=== PATIENT | male | born 1985 | race Hispanic/Latino ===

== ENCOUNTER 2017-03-27 10:50 | Emergency (ER) | payer OTHER ==
[~2017-03-27] VITALS: Ht 167.6 cm; Wt 71.8 kg
[2017-03-27] MEDS ORDERED: NALT50TA4 PO (11:04)
[2017-03-27] MEDS ORDERED: LAMO100T (11:04)
[2017-03-27] MEDS ORDERED: CYCL10TA PO (11:04)
[2017-03-27] MEDS ORDERED: HYDR50TA70 PO (11:04)
[2017-03-27] MEDS ORDERED: GABA-283 PO (11:04)
[2017-03-27] MEDS ORDERED: DIAZ5TAB PO (11:04)
[2017-03-27] MEDS ORDERED: TRAZ1TAB14 PO (11:04)
[2017-03-27] MEDS ORDERED: FLUO20CA8 PO (11:04)
[2017-03-27] MEDS ORDERED: PRAZ5CAP PO (11:04)
[2017-03-27 12:37] LABS: MEAN CORPUSCULAR HEMOGLOBIN 30.1 pg (27.0-33.0); MEAN CORPUSCULAR HGB CONC 34.6 g/dl (32.0-36.5); MEAN CORPUSCULAR VOLUME 87.1 fl (80.0-96.0); RED CELL DISTRIBUTION WIDTH 13.7 % (11.5-14.5); WHITE BLOOD COUNT 5.8 K/mm3 (4.0-10.0)
[2017-03-27 13:26] LABS: ALBUMIN 4.2 GM/DL (3.2-5.2); ALBUMIN/GLOBULIN RATIO 1.27 (1.00-1.93); ALKALINE PHOSPHATASE 72 U/L (45-117); ALT/SGPT 32 U/L (12-78); ANION GAP 7 MEQ/L (8-16); AST/SGOT 23 U/L (15-37); BILIRUBIN,DIRECT 0.2 MG/DL (0.0-0.2); BILIRUBIN,TOTAL 1.2 MG/DL (0.2-1.0); BLOOD UREA NITROGEN 13 MG/DL (7-18); CALCIUM LEVEL 9.1 MG/DL (8.5-10.1); CARBON DIOXIDE LEVEL 28 MEQ/L (21-32); CHLORIDE LEVEL 106 MEQ/L (98-107); CREATININE FOR GFR 0.83 MG/DL (0.70-1.30); GLOMERULAR FILTRATION RATE > 60.0 (>60); GLUCOSE, FASTING 104 MG/DL (70-105); POTASSIUM SERUM 4.4 MEQ/L (3.5-5.1); SODIUM LEVEL 141 MEQ/L (136-145); TOTAL PROTEIN 7.5 GM/DL (6.4-8.2)
[2017-03-27 14:15] LABS: METHADONE URINE NEGATIVE (NEGATIVE)
--- NOTE | 2017-03-27 20:04 | ECGEPIP ---
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
[2017-03-27] MEDS ORDERED: GABAPENTIN 300 MG CAP PO ONE (21:15)
[2017-03-27] MEDS ORDERED: traZODone 100 MG TAB PO ONE (21:15)
[2017-03-27] MEDS ORDERED: hydrOXYzine 50 MG TAB PO ONE (21:15)
[2017-03-27] MEDS ORDERED: PRAZOSIN 1 MG CAP PO ONE (21:15)
[2017-03-27 23:57] VITALS: BP 138/77
== END 2017-03-28 ==
LOC: M ED 10:50
DX: R45.851 Suicidal ideations (principal); R45.850 Homicidal ideations; F43.10 Post-traumatic stress disorder, unspecified; F17.210 Nicotine dependence, cigarettes, uncomplicated; Z79.899 Other long term (current) drug therapy
CPT/HCPCS: 36415; 80048; 80076; 80307; 84443; 85027; 93005; 99285; G0480

== ENCOUNTER 2017-05-24 20:43 | Emergency (ER) | payer OTHER ==
[~2017-05-24] VITALS: Ht 167.6 cm; Wt 70.9 kg
[~2017-05-24 20:43] MED LIST: CYCL10TA PO; DIAZ5TAB PO; FLUO20CA8 PO; GABA-283 PO; HYDR50TA70 PO; LAMO100T; NALT50TA4 PO; PRAZ5CAP PO; TRAZ1TAB14 PO
[2017-05-24 22:34] VITALS: BP 143/78
--- NOTE | 2017-05-25 08:30 | REP ---
Clinical: Trauma. Technique: AP, lateral, bilateral oblique views of the right ankle. Findings: There is a closed oblique fracture involving the distal fibular metadiaphysis with overlying soft tissue swelling. No subcutaneous emphysema or radiodense foreign body. Ankle mortise appears grossly intact. No other fracture dislocation is identified. Impression: Oblique fracture of the distal fibular metadiaphysis with diffuse soft tissue swelling. Signed by Segundo Montiel MD 05/25/2017 08:22 A
== END 2017-05-24 22:38 | disposition home or self-care (01) ==
LOC: M ED 20:43
DX: Z60.9 Problem related to social environment, unspecified (principal); S82.401A Unspecified fracture of shaft of right fibula, initial encounter for closed fracture; X58.XXXA Exposure to other specified factors, initial encounter; Y92.89 Other specified places as the place of occurrence of the external cause; Y93.89 Activity, other specified; Y99.8 Other external cause status; F43.10 Post-traumatic stress disorder, unspecified; G40.909 Epilepsy, unspecified, not intractable, without status epilepticus; Z79.899 Other long term (current) drug therapy; F17.210 Nicotine dependence, cigarettes, uncomplicated

== ENCOUNTER 2019-08-10 03:32 | Emergency (ER) | payer OTHER ==
[~2019-08-10] VITALS: Ht 167.6 cm; Wt 72.4 kg
[~2019-08-10 03:32] MED LIST changes: +FLUO20CA20 PO; -FLUO20CA8 PO; -GABA-283 PO; +GABA-845 PO; -LAMO100T; +LAMO100T3
[2019-08-10] MEDS ORDERED: diphenhydrAMINE INJ 50MG/ML VIAL (J1200) IM ONE (03:45)
[2019-08-10] MEDS ORDERED: LORazepam 2 MG/ML VIAL (J2060) IM ONE (03:45)
[2019-08-10] MEDS ORDERED: HALOPERIDOL 5 MG/ML VIAL (J1630) IM ONE (04:00)
[2019-08-10] MEDS ORDERED: NS 1,000 ML IV ONE (04:45)
[2019-08-10 05:09] LABS: HEMATOCRIT 45.5 % (42.0-52.0); HEMOGLOBIN 15.7 g/dl (13.5-17.5); MEAN CORPUSCULAR HEMOGLOBIN 29.2 pg (27.0-33.0); MEAN CORPUSCULAR HGB CONC 34.5 g/dl (32.0-36.5); MEAN CORPUSCULAR VOLUME 84.7 fl (80.0-96.0); PLATELET COUNT, AUTOMATED 200 10^3/uL (150-450); RED BLOOD COUNT 5.37 10^6/uL (4.30-6.10); WHITE BLOOD COUNT 4.4 10^3/uL (4.0-10.0)
[2019-08-10] MEDS ORDERED: MIDAZOLAM INJ 2 MG/2 ML VIAL (J2250) IV ONE (05:30)
[2019-08-10] MEDS ORDERED: MIDAZOLAM INJ 2 MG/2 ML VIAL (J2250) IV STA (05:39)
[2019-08-10 06:06] LABS: BLOOD UREA NITROGEN 11 MG/DL (7-18); CALCIUM LEVEL 8.1 MG/DL (8.5-10.1); CARBON DIOXIDE LEVEL 26 MEQ/L (21-32); CHLORIDE LEVEL 110 MEQ/L (98-107); CREATININE FOR GFR 0.98 MG/DL (0.70-1.30); ETHYL ALCOHOL (ETHANOL) 0.292 % (0.000-0.010); GLOMERULAR FILTRATION RATE > 60.0 (>60); GLUCOSE, FASTING 101 MG/DL (70-100); MAGNESIUM LEVEL 2.4 MG/DL (1.8-2.4); POTASSIUM SERUM 3.7 MEQ/L (3.5-5.1); SODIUM LEVEL 144 MEQ/L (136-145)
[2019-08-10 11:30] VITALS: BP 99/56
== END 2019-08-10 14:26 | disposition home or self-care (01) ==
LOC: M ED 03:32
DX: F10.129 Alcohol abuse with intoxication, unspecified (principal); Z79.899 Other long term (current) drug therapy
CPT/HCPCS: 51702; 80048; 83735; 85027; 96372; 96374; 99285; G0480; J1200; J1630; J2060; J2250

== ENCOUNTER 2020-06-13 19:43 | Emergency (ER) | payer OTHER ==
[~2020-06-13] VITALS: Ht 165.1 cm; Wt 68.2 kg
[~2020-06-13 19:43] MED LIST changes: +CYCL-707 PO; -CYCL10TA PO
[2020-06-13] MEDS ORDERED: LATU80TA PO (20:26)
[2020-06-13 20:48] LABS: HEMATOCRIT 47.3 % (42.0-52.0); HEMOGLOBIN 15.2 g/dl (13.5-17.5); MEAN CORPUSCULAR HEMOGLOBIN 28.3 pg (27.0-33.0); MEAN CORPUSCULAR HGB CONC 32.1 g/dl (32.0-36.5); MEAN CORPUSCULAR VOLUME 87.9 fl (80.0-96.0); PLATELET COUNT, AUTOMATED 241 10^3/uL (150-450); RED BLOOD COUNT 5.38 10^6/uL (4.30-6.10); WHITE BLOOD COUNT 5.9 10^3/uL (4.0-10.0)
[2020-06-13 21:05] LABS: AMPHETAMINES LEVEL URINE NEGATIVE (NEGATIVE); BARBITURATES URINE NEGATIVE (NEGATIVE); BENZODIAZEPINES URINE NEGATIVE (NEGATIVE); CANNABINOIDS URINE NEGATIVE (NEGATIVE); COCAINE METABOLITE URINE NEGATIVE (NEGATIVE); METHADONE URINE NEGATIVE (NEGATIVE); OPIATES URINE NEGATIVE (NEGATIVE); PHENCYCLIDINE URINE NEGATIVE (NEGATIVE)
[2020-06-13 21:33] LABS: ACETAMINOPHEN LEVEL < 2.0 UG/ML (10.0-30.0); ALBUMIN 4.3 GM/DL (3.2-5.2); ALT/SGPT 27 U/L (12-78); BILIRUBIN,DIRECT 0.2 MG/DL (0.0-0.2); BILIRUBIN,TOTAL 0.6 MG/DL (0.2-1.0); BLOOD UREA NITROGEN 18 MG/DL (7-18); CARBON DIOXIDE LEVEL 30 MEQ/L (21-32); CHLORIDE LEVEL 105 MEQ/L (98-107); CREATININE FOR GFR 0.96 MG/DL (0.70-1.30); ETHYL ALCOHOL (ETHANOL) < 0.003 % (0.000-0.010); GLOMERULAR FILTRATION RATE > 60.0 (>60); GLUCOSE, FASTING 108 MG/DL (70-100); POTASSIUM SERUM 4.4 MEQ/L (3.5-5.1); SALICYLATE LEVEL < 1.7 MG/DL (5.0-30.0); SODIUM LEVEL 139 MEQ/L (136-145); TOTAL PROTEIN 7.7 GM/DL (6.4-8.2)
[2020-06-13 23:05] VITALS: BP 121/78
== END 2020-06-13 23:06 | disposition home or self-care (01) ==
LOC: M ED 19:43
DX: F43.0 Acute stress reaction (principal); F43.12 Post-traumatic stress disorder, chronic; F32.9 Major depressive disorder, single episode, unspecified; F41.9 Anxiety disorder, unspecified; Z79.899 Other long term (current) drug therapy
CPT/HCPCS: 80048; 80076; 80307; 84443; 85027; 99284; G0480

== ENCOUNTER 2020-07-29 14:24 | Emergency (ER) | payer OTHER ==
[~2020-07-29] VITALS: Ht 165.1 cm; Wt 63.6 kg
[~2020-07-29 14:24] MED LIST changes: +LATU80TA PO
--- OUTSIDE RECORDS SUMMARY | 2020-07-29 14:31 | CCD ---
Author Author [facility] Organization [facility] Address Unknown Phone Unavailable Support Name Relationship Address Phone SOM BURCH Next Of Kin [address] [place] [address] DISABLED Next Of Kin Unknown Unavailable RAUL ZUÑ[place] [address] QUINCY GANNONINA Next Of Kin [address] [facility] [address] [address] Next Of Kin [address] [place] [address] UE Next Of Kin Unknown Unavailable SCHMITZ, EDGAR Next Of Kin [address] [place] [address] [employer] Next Of Kin [address] [place] [address] Re-disclosure Warning The records that you are about to access may contain information from federally-assisted alcohol or drug abuse programs. If such information is present, then the following federally mandated warning applies: This information has been disclosed to you from records protected by federal confidentiality rules (42 CFR part 2). The federal rules prohibit you from making any further disclosure of this information unless further disclosure is expressly permitted by the written consent of the person to whom it pertains or as otherwise permitted by 42 CFR part 2. A general authorization for the release of medical or other information is NOT sufficient for this purpose. The Federal rules restrict any use of the information to criminally investigate or prosecute any alcohol or drug abuse patient.The records that you are about to access may contain highly sensitive health information, the redisclosure of which is protected by Article 27-F of the [facility] Public Health law. If you continue you may have access to information: Regarding HIV / AIDS; Provided by facilities licensed or operated by the [facility] Office of Mental Health; or Provided by the [facility] Office for People With Developmental Disabilities. If such information is present, then the following [facility] mandated warning applies: This information has been disclosed to you from confidential records which are protected by state law. State law prohibits you from making any further disclosure of this information without the specific written consent of the person to whom it pertains, or as otherwise permitted by law. Any unauthorized further disclosure in violation of state law may result in a fine or mcfp sentence or both. A general authorization for the release of medical or other information is NOT sufficient authorization for further disc losure. Insurance Providers Payer name Policy type / Coverage type Policy ID Covered republican ID Covered republican's relationship to phillips Policy Phillips Plan Information 'S ADMINISTRATION [id number] SP [id number] [facility] O [id number] S [id number] [facility]/136E O [id number] S [id number] [employer] [facility]/[place] [id number] S [id number] SELF PAY SP UNAVAILABLE S UNAVAILA BLE V[employer] PROGRAM VACAA [facility]/[place] [id number] S [id number] [employer] [facility]/[place] [id number] S [id number] PROGRAM [facility]/[place] [id number] S [id number] 'S ADMINISTRATION [id number] SP [id number] ACTIVE DUTY [id number] SP [id number] Results ID Date Data Source [id number] 06/25/2020 12:00:00 AM EST [facility] Kenny Tong MD Patient Name: EDITA SCHMITZ [place] Date of : 1985[address] [address] Date of Exam: 06/25/2020PH#: Fax: [phone] EXAM: SHOULDER (COMPLETE-MINIMUM 2 VIEWS) LEFT X-RAYCLINICAL INFORMATION: Disability determination.Three views.There is no evidence of acute fracture, dislocation or intrinsic bonedisease. The joint spaces appear normal.IMPRESSION:Negative left shoulder series.LONG Flores/Aurelia camejo for referring TUNDE SCHMITZ to our office. Electronically Signed - KIKI ZUNIGA MD 06/25/20 16:56 Name Value Range Interpretation Code Description Data Becky rce(s) Supporting Document(s) ID Date Data Source [id number] 06/25/2020 12:00:00 AM EST [facility] Kenny Tong MD Patient Name: EDITA SCHMITZ [facility] Date of : 1985[place] [address] Date of Exam: 06/25/2020#: Fax: [phone] EXAM: ANKLE COMPLETE RIGHT (MIN 3 VIEWS) X-RAYCLINICAL INFORMATION: Disability determination.Four views.There is no acute fracture or dislocation. Metallic plate and multiplescrews are seen in the distal fibula. The ankle mortise is anatomic. Isee no other significant finding.IMPRESSION:Metallic internal fixation distal fibula. Otherwise, negative exam.LONG Flores/Aurelia camejo for referring TUNDE SCHMITZ to our office. Electronically Signed - KIKI ZUNIGA MD 06/25/20 16:56 Name Value Range Interpretation Code Description Data Becky rce(s) Supporting Document(s) Procedure
--- OUTSIDE RECORDS SUMMARY | 2020-07-29 16:27 | CCD ---
Author Author [facility] Organization [facility] Address Unknown Phone Unavailable Support Name Relationship Address Phone SOM BURCH Next Of Kin [address] [place] [address] DISABLED Next Of Kin Unknown Unavailable RAUL ZUÑ[place] [address] QUINCY GANNONINA Next Of Kin [address] [facility] [address] [address] Next Of Kin [address] [place] [address] UE Next Of Kin Unknown Unavailable SCHMITZ, EDGAR Next Of Kin [address] [place] [address] [employer] Next Of Kin [address] [place] [address] Re-disclosure Warning The records that you are [...] is protected by Article 27-F of the [facility] Public Health law. If you continue you may have access to information: Regarding HIV / AIDS; Provided by facilities licensed or operated by the [facility] Office of Mental Health; or Provided by the [facility] Office for People With Developmental Disabilities. If such information is present, then the following [facility] mandated warning applies: This information has [...] law may result in a fine or halfway sentence or both. A general authorization for the release of medical or other information is NOT sufficient authorization for further disc losure. Insurance Providers Payer name Policy type / Coverage type Policy ID Covered constitution party ID Covered constitution party's relationship to phillips Policy Phillips Plan Information 'S ADMINISTRATION [id number] SP [id number] [facility] O [id number] S [id number] [facility]/136E O [id number] S [id number] [facility] [employer] [facility]/[place] [id number] S [id number] SELF PAY SP UNAVAILABLE S UNAVAILA BLE V[employer] CHO[employer] PROGRAM VACAA [facility]/[place] [id number] S [id number] [facility]/[place] [id number] S [id number] PROGRAM [facility]/[place] [id number] S [id number] 'S ADMINISTRATION [id number] SP [id number] ACTIVE DUTY [id number] SP [id number] Results ID Date Data Source [id number] 06/25/2020 12:00:00 AM EST [facility] Kenny Tong MD Patient Name: EDITA SCHMITZ [place] Date of : 1985[address] [address] Date of Exam: 06/25/2020PH#: Fax: [phone] EXAM: SHOULDER (COMPLETE-MINIMUM 2 VIEWS) LEFT X-RAYCLINICAL INFORMATION: Disability determination.Three views.There is no evidence of acute fracture, dislocation or intrinsic bonedisease. The joint spaces appear normal.IMPRESSION:Negative left shoulder series.LONG Flores/Aurelia camejo for referring UTNDE SCHMITZ to our office. Electronically Signed - KIKI ZUNIGA MD 06/25/20 16:56 Name Value Range Interpretation Code Description Data Becky rce(s) Supporting Document(s) ID Date Data Source [id number] 06/25/2020 12:00:00 AM EST [facility] Kenny Tong MD Patient Name: EDITA SCHMITZ [facility] Date of : 1985[place] [address] Date of Exam: 06/25/2020#: Fax: [phone] EXAM: [...]
[2020-07-29 16:57] LABS: HEMATOCRIT 46.8 % (42.0-52.0); HEMOGLOBIN 15.6 g/dl (13.5-17.5); MEAN CORPUSCULAR HGB CONC 33.3 g/dl (32.0-36.5); PLATELET COUNT, AUTOMATED 193 10^3/uL (150-450); RED BLOOD COUNT 5.38 10^6/uL (4.30-6.10); WHITE BLOOD COUNT 3.8 10^3/uL (4.0-10.0)
[2020-07-29 17:19] LABS: AMPHETAMINES LEVEL URINE NEGATIVE (NEGATIVE); BARBITURATES URINE NEGATIVE (NEGATIVE); BENZODIAZEPINES URINE NEGATIVE (NEGATIVE); CANNABINOIDS URINE NEGATIVE (NEGATIVE); COCAINE METABOLITE URINE NEGATIVE (NEGATIVE); METHADONE URINE NEGATIVE (NEGATIVE); OPIATES URINE NEGATIVE (NEGATIVE); PHENCYCLIDINE URINE NEGATIVE (NEGATIVE)
[2020-07-29 17:31] LABS: ACETAMINOPHEN LEVEL < 2.0 UG/ML (10.0-30.0); ALBUMIN 4.1 GM/DL (3.2-5.2); ALT/SGPT 32 U/L (12-78); BILIRUBIN,DIRECT 0.2 MG/DL (0.0-0.2); BLOOD UREA NITROGEN 15 MG/DL (7-18); CARBON DIOXIDE LEVEL 30 MEQ/L (21-32); CHLORIDE LEVEL 105 MEQ/L (98-107); CREATININE FOR GFR 0.96 MG/DL (0.70-1.30); ETHYL ALCOHOL (ETHANOL) < 0.003 % (0.000-0.010); GLOMERULAR FILTRATION RATE > 60.0 (>60); GLUCOSE, FASTING 83 MG/DL (70-100); POTASSIUM SERUM 4.4 MEQ/L (3.5-5.1); SALICYLATE LEVEL < 1.7 MG/DL (5.0-30.0); SODIUM LEVEL 139 MEQ/L (136-145); TOTAL PROTEIN 7.1 GM/DL (6.4-8.2)
[2020-07-29 19:26] VITALS: BP 136/72
== END 2020-07-29 19:31 | disposition home or self-care (01) ==
LOC: M ED 14:24
DX: Z04.6 Encounter for general psychiatric examination, requested by authority (principal); F33.9 Major depressive disorder, recurrent, unspecified; F41.9 Anxiety disorder, unspecified; F43.10 Post-traumatic stress disorder, unspecified; R56.9 Unspecified convulsions; Z79.899 Other long term (current) drug therapy; F17.210 Nicotine dependence, cigarettes, uncomplicated
CPT/HCPCS: 36415; 80048; 80076; 80307; 84443; 85027; 99284; G0480

== ENCOUNTER 2021-06-18 01:29 | Emergency (ER) | payer OTHER, SELFPAY ==
[~2021-06-18] VITALS: Ht 175.3 cm; Wt 100.0 kg
[~2021-06-18 01:29] MED LIST changes: +GABA-283 PO; -GABA-845 PO
--- OUTSIDE RECORDS SUMMARY | 2021-06-18 01:33 | CCD ---
Author Author [facility] Organization [facility] Address Unknown Phone Unavailable Support Name Relationship Address Phone SOM BURCH Next Of Kin [address] [place] [address] DISABLED Next Of Kin Unknown Unavailable RAUL ZUÑ[place] [address] ENRIQUETALAURE FISHMAN Next Of Kin [address] [facility] [address] [address] Next Of Kin [address] [place] [address] UE Next Of Kin Unknown Unavailable AINSLEY EDGAR Next Of Kin [address] [place] [address] [facility] Next Of Kin [address] [place] [address] Re-disclosure Warning The records that you are [...] is protected by Article 27-F of the [facility] Public Health law. If you continue you may have access to information: Regarding HIV / AIDS; Provided by facilities licensed or operated by the [facility] Office of Mental Health; or Provided by the [facility] Office for People With Developmental Disabilities. If such information is present, then the following [facility] mandated warning applies: This information has been [...] law may result in a fine or custodial sentence or both. A general authorization for the release of medical or other information is NOT sufficient authorization for further disc losure. Medications No Information Insurance Providers Payer name Policy type / Coverage type Policy ID Covered green party ID Covered green party's relationship to phillips Policy Phillips Plan Information 'S ADMINISTRATION [id number] SP [id number] [facility] O [id number] S [id number] [facility]/136E O [id number] S [id number] [employer] [facility]/[place] [id number] S [id number] SELF PAY SP UNAVAILABLE S UNAVAILA BLE V[employer] CHO[employer] PROGRAM VACAA [facility]/[place] [id number] S [id number] [employer] [facility]/[place] [id number] S [id number] PROGRAM [facility]/[place] [id number] S [id number] 'S ADMINISTRATION [id number] SP [id number] SELF PAY ONLY [id number] SP [id number] ACTIVE DUTY [id number] SP [id number] Problems, Conditions, and Diagnoses No Information Surgeries/Procedures No Information Results ID Date Data Source [id number] 04/22/2021 10:07:00 AM EDT [facility] Name Value Range Interpretation Code Description Data Becky rce(s) Supporting Document(s) SARS-COV 2 PCR NEGATIVE [facility] This lab was ordered by [employer] #30 and reported by [employer]. ID Date Data Source [id number] 04/22/2021 12:00:00 AM EDT [facility] Name Value Range Interpretation Code Description Data Becky rce(s) Supporting Document(s) SARS-CoV-2 (COVID-19) RNA [Presence] in Respiratory specimen by MANJIT with probe detection Not detected [facility] This lab was ordered by [employer] and r eported by [employer]. ID Date Data Source [id number] 06/25/2020 12:00:00 AM EST [facility] Kenny Tong MD Patient Name: EDITA SCHMITZ [facility] Date of : 1985[place] [address] Date of Exam: 06/25/2020#: Fax: [phone] EXAM: SHOULDER (COMPLETE-MINIMUM 2 VIEWS) LEFT X-RAYCLINICAL INFORMATION: Disability determination.Three views.There is no evidence of acute fracture, dislocation or intrinsic bonedisease. The joint spaces appear normal.IMPRESSION:Negative left shoulder series.Jonatan Bowers, LONG/Aurelia you for referring TUNDE SCHMITZ to our office. Electronically Signed - JONATAN BOWERS MD 06/25/20 16:56 Name Value Range Interpretation Code Description Data Becky rce(s) Supporting Document(s) ID Date Data Source [id number] 06/25/2020 12:00:00 AM EST [facility] Kenny Tong MD Patient Name: EDITA SCHMITZ [place] Date of : 1985[place] [address] Date of Exam: 06/25/2020#: Fax: [phone] EXAM: ANKLE COMPLETE RIGHT (MIN 3 VIEWS) X-RAYCLINICAL INFORMATION: Disability determination.Four views.There is no acute fracture or dislocation. Metallic plate and multiplescrews are seen in the distal fibula. The ankle mortise is anatomic. Isee no other significant finding.IMPRESSION:Metallic internal fixation distal fibula. Otherwise, negative exam.Jonatan Bowers, LONG/Aurelia you for referring TUNDE SCHMITZ to our office. Electronically Signed - JONATAN BOWERS MD 06/25/20 16:56 Name Value Range Interpretation Code Description Data Becky rce(s) Supporting Document(s) Procedure Social History No Information
[2021-06-18] MEDS ORDERED: NS 1,000 ML IV ONE ×2 (02:20→07:40)
[2021-06-18 02:38] LABS: ABG BASE EXCESS -5.7 (-2.0-2.0); ABG HCO3 20.4 MEQ/L (22.0-26.0); ABG O2 SATURATION 95.9 % (95.0-99.0); ABG PARTIAL PRESSURE CO2 42.1 mmHg (35.0-45.0); ABG PARTIAL PRESSURE O2 91.6 mmHg (75.0-100.0); ABG STANDARD HCO3 19.9 MEQ/L (22.0-26.0); ABG TOTAL CO2 21.7 MEQ/L (22.0-29.0); ABG pH (ARTERIAL) 7.304 UNITS (7.350-7.450)
[2021-06-18 02:42] LABS: HEMATOCRIT 47.4 % (42.0-52.0); HEMOGLOBIN 15.7 g/dl (13.5-17.5); MEAN CORPUSCULAR HEMOGLOBIN 28.8 pg (27.0-33.0); MEAN CORPUSCULAR HGB CONC 33.1 g/dl (32.0-36.5); MEAN CORPUSCULAR VOLUME 86.8 fl (80.0-96.0); PLATELET COUNT, AUTOMATED 287 10^3/uL (150-450); RED BLOOD COUNT 5.46 10^6/uL (4.30-6.10); WHITE BLOOD COUNT 6.7 10^3/uL (4.0-10.0)
[2021-06-18 03:06] LABS: AMPHETAMINES LEVEL URINE NEGATIVE (NEGATIVE); BARBITURATES URINE NEGATIVE (NEGATIVE); BENZODIAZEPINES URINE NEGATIVE (NEGATIVE); CANNABINOIDS URINE NEGATIVE (NEGATIVE); COCAINE METABOLITE URINE NEGATIVE (NEGATIVE); METHADONE URINE NEGATIVE (NEGATIVE); OPIATES URINE NEGATIVE (NEGATIVE); PHENCYCLIDINE URINE NEGATIVE (NEGATIVE)
[2021-06-18 03:21] LABS: RSV AMPLIFICATION NEGATIVE (NEGATIVE)
[2021-06-18 03:46] LABS: ACETAMINOPHEN LEVEL < 2.0 UG/ML (10.0-30.0); ALBUMIN 4.1 GM/DL (3.2-5.2); ALT/SGPT 28 U/L (12-78); BILIRUBIN,DIRECT 0.1 MG/DL (0.0-0.2); BILIRUBIN,TOTAL 0.6 MG/DL (0.2-1.0); BLOOD UREA NITROGEN 15 MG/DL (7-18); CALCIUM LEVEL 8.4 MG/DL (8.5-10.1); CARBON DIOXIDE LEVEL 22 MEQ/L (21-32); CHLORIDE LEVEL 110 MEQ/L (98-107); CREATININE FOR GFR 0.98 MG/DL (0.70-1.30); ETHYL ALCOHOL (ETHANOL) 0.319 % (0.000-0.010); GLOMERULAR FILTRATION RATE > 60.0 (>60); GLUCOSE, FASTING 120 MG/DL (70-100); POTASSIUM SERUM 3.9 MEQ/L (3.5-5.1); SALICYLATE LEVEL < 1.7 MG/DL (5.0-30.0); SODIUM LEVEL 144 MEQ/L (136-145); TOTAL PROTEIN 7.6 GM/DL (6.4-8.2)
--- NOTE | 2021-06-18 04:40 | REPVR ---
PROCEDURE INFORMATION: Exam: CT Head Without Contrast Exam date and time: 06/18/2021 2:10 AM Age: 36 years old Clinical indication: Altered mental status/memory loss; Confusion or disorientation; Patient HX: ETOH; Additional info: AMS TECHNIQUE: Imaging protocol: Computed tomography of the head without contrast. Radiation optimization: All CT scans at this facility use at least one of these dose optimization techniques: automated exposure control; mA and/or kV adjustment per patient size (includes targeted exams where dose is matched to clinical indication); or iterative reconstruction. COMPARISON: CR Nasal Bones 06/21/2015 2:28 AM FINDINGS: Brain: Normal. No hemorrhage. Unremarkable white matter. No mass effect. Cerebral ventricles: No ventriculomegaly. Paranasal sinuses: Mild bilateral maxillary sinus mucosal thickening. Mastoid air cells: Visualized mastoid air cells are well aerated. Auditory system: Debris in the external auditory canals bilaterally. Bones/joints: Unremarkable. No acute fracture. Soft tissues: Unremarkable. IMPRESSION: 1. Bilateral maxillary sinus disease. 2. Otherwise negative noncontrast head CT. Electronically signed by: Steve Roy On 06/18/2021 04:39:51 AM
--- NOTE | 2021-06-18 04:43 | REPVR ---
PROCEDURE INFORMATION: Exam: CT Cervical Spine Without Contrast Exam date and time: 06/18/2021 2:10 AM Age: 36 years old Clinical indication: Neck pain; Additional info: AMS TECHNIQUE: Imaging protocol: Computed tomography images of the cervical spine without contrast. Radiation optimization: All CT scans at this facility use at least one of these dose optimization techniques: automated exposure control; mA and/or kV adjustment per patient size (includes targeted exams where dose is matched to clinical indication); or iterative reconstruction. COMPARISON: No relevant prior studies available. FINDINGS: Bones/joints: No acute fracture or subluxation. Discs/Spinal canal/Neural foramina: Mild interspace narrowing at C5-C7 with very minimal posterior paracentral osteophytes and no spinal or foraminal stenosis. Sinuses: Right maxillary sinus mucosal thickening. Lungs: Lung apices are normal. Soft tissues: Unremarkable. IMPRESSION: 1. Early degenerative disc changes from C5-C7 with no spinal or foraminal stenosis. 2. Otherwise negative CT cervical spine. No acute fracture or subluxation. Electronically signed by: Steve Roy On 06/18/2021 04:43:17 AM
[2021-06-18] MEDS ORDERED: LORazepam 2 MG TAB PO PRN (05:20)
--- OUTSIDE RECORDS SUMMARY | 2021-06-18 05:28 | CCD ---
Author Author [facility] Organization [facility] Address Unknown Phone Unavailable Support Name Relationship Address Phone SOM BURCH Next Of Kin [address] [place] [address] DISABLED Next Of Kin Unknown Unavailable RAUL ZUÑ[place] [address] ENRIQUETALAURE FISHMAN Next Of Kin [address] [facility] [address] [address] Next Of Kin [address] [place] [address] UE Next Of Kin Unknown Unavailable AINSLEY EDGAR Next Of Kin [address] [place] [address] [facility] Next Of Kin [address] [place] [address] Re-disclosure Warning The records that you are [...] of the [facility] Public Health law. If you continue you may have access to information: Regarding HIV / AIDS; Provided by facilities licensed or operated by the [facility] Office of Mental Health; or Provided by the [facility] Office for People With Developmental Disabilities. If such information is present, then the following [facility] mandated warning applies: This information has been [...] law may result in a fine or residential sentence or both. A general authorization for the release of medical or other information is NOT sufficient authorization for further disc losure. Medications No Information Insurance Providers Payer name Policy type / Coverage type Policy ID Covered constitution party ID Covered constitution party's relationship to phillips Policy Phillips Plan Information 'S ADMINISTRATION [id number] SP [id number] [facility] O [id number] S [id number] [facility]/136E O [id number] S [id number] [employer] [facility]/[place] [id number] S [id number] SELF PAY SP UNAVAILABLE S UNAVAILA BLE [employer] PROGRAM VACAA [facility]/[place] [id number] S [id number] [employer] [facility]/[place] [id number] S [id number] PROGRAM [facility]/[place] [id number] S [id number] 'S ADMINISTRATION [id number] SP [id number] SELF PAY ONLY [id number] SP [id number] ACTIVE DUTY [id number] SP [id number] Problems, Conditions, and Diagnoses No Information Surgeries/Procedures No Information Results ID Date Data Source [id number] 04/22/2021 10:07:00 AM EDT [facility] Name Value Range Interpretation Code Description Data Becky rce(s) Supporting Document(s) SARS-COV 2 PCR NEGATIVE [facility] This lab was ordered by [employer] #30 and reported by [employer]. ID Date Data Source [id number] 04/22/2021 12:00:00 AM EDT [facility] Name Value Range Interpretation Code Description Data Becky rce(s) Supporting Document(s) SARS-CoV-2 (COVID-19) RNA [Presence] in Respiratory specimen by MANJIT with probe detection Not detected [facility] This lab was ordered by [employer] and r eported by [facility]. ID Date Data Source [id number] 06/25/2020 12:00:00 AM EST [facility] Kenny Tong MD Patient Name: EDITA SCHMITZ [facility] Date of : 1985[place] [address] Date of Exam: 06/25/2020#: Fax: [phone] EXAM: [...] rce(s) Supporting Document(s) ID Date Data Source [id number] 06/25/2020 12:00:00 AM EST [facility] Kenny Tong MD Patient Name: EDITA SCHMITZ [place] Date of : 1985[place] [address] Date of Exam: 06/25/2020#: Fax: [phone] EXAM: [...]
[2021-06-18 08:51] VITALS: BP 108/54
[2021-06-18] MEDS ORDERED: MULTIVITAMINS/MINERALS THERAP 1 TAB PO SCH (09:00)
[2021-06-18] MEDS ORDERED: FOLIC ACID 1 MG TAB PO SCH (09:00)
[2021-06-18] MEDS ORDERED: THIAMINE 100 MG TAB PO SCH (09:00)
--- NOTE | 2021-06-18 18:57 | ECGEPIP ---
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
== END 2021-06-18 09:18 | disposition home or self-care (01) ==
LOC: M ED 01:29
DX: F10.129 Alcohol abuse with intoxication, unspecified (principal); J01.00 Acute maxillary sinusitis, unspecified; M50.322 Other cervical disc degeneration at C5-C6 level; M50.323 Other cervical disc degeneration at C6-C7 level; Z79.899 Other long term (current) drug therapy